=== PATIENT | female | born 2000 | race Caucasian/White ===

== ENCOUNTER 2024-07-10 16:44 | Emergency (ER) | payer OTHER ==
[~2024-07-10] VITALS: Ht 154.9 cm; Wt 52.2 kg
[2024-07-10] MEDS ORDERED: ONDANSETRON HCL/PF 4 MG/2 ML VIAL ONE (16:55)
[2024-07-10] MEDS ORDERED: methylPREDNISolone SOD SUCC 125 MG/2ML VIAL ONE (16:55)
[2024-07-10] MEDS ORDERED: LORATADINE 10 MG TABLET ONE (16:55)
[2024-07-10] MEDS ORDERED: FAMOTIDINE/PF INJ 20 MG/2 ML VIAL IV ONE (16:56)
[2024-07-10] MEDS: LORATADINE 10 MG TABLET PO SCH (17:02)
[2024-07-10] MEDS: ONDANSETRON HCL/PF 4 MG/2 ML VIAL IVP ONE (17:03)
[2024-07-10] MEDS: FAMOTIDINE/PF INJ 20 MG/2 ML VIAL IV ONE (17:04)
[2024-07-10] MEDS: methylPREDNISolone SOD SUCC 125 MG/2ML VIAL IV ONE (17:07)
[2024-07-10] MEDS ORDERED: PRED50TA PO (19:42)
[2024-07-10] MEDS ORDERED: LORA10TA7 PO (19:42)
[2024-07-10] MEDS ORDERED: FAMO20TA8 PO (19:42)
[2024-07-10 19:51] VITALS: BP 117/71; TEMP 98.7; O2SAT 0
== END 2024-07-10 19:52 | disposition home or self-care (01) ==
LOC: ER 16:46
DX: T78.01XA Anaphylactic reaction due to peanuts, initial encounter (principal); R06.02 Shortness of breath; R11.0 Nausea; Z91.010 Allergy to peanuts; Y92.89 Other specified places as the place of occurrence of the external cause
CPT/HCPCS: 99284; 96374; 96375; J3490; J2919; J2405